=== PATIENT | male | born 1970 | race Caucasian/White ===

== ENCOUNTER 2024-01-12 06:37 | Emergency (ER) | payer BC, SELFPAY ==
[2024-01-12 06:39] VITALS: BP 136/72
[2024-01-12] MEDS: TORADOL 15 MG IV (07:01)
[2024-01-12 07:05] VITALS: BP 132/71
[2024-01-12] MEDS: NSS 500 IV (07:11)
--- NOTE | 2024-01-12 07:13 | ED.GENMED ---
History of Present Illness
General
Chief Complaint: Abdominal Pain
Source: patient
Exam Limitations: none
Time Seen by Provider: 01/12/24 06:44
Travel History
Have you had any contact with someone who has COVID-19?: No
Do you have any symptoms of coronavirus? Fever > 100 degrees, chills, cough, shortness of breath, sore throat, loss of taste or smell, muscle aches, or headache?: No
History of Present Illness
History of Present Illness:
Patient started yesterday with right lower quadrant pain. Then noted blood in the urine overnight. Pain is mild to moderate in nature. No fever or chills. No urinary symptoms. No history of similar pain.
Past History
Past History
ED Past Medical History: None
ED Past Surgical History: Orthopedic
Social History
Tobacco: Former smoker (quit 12 yrs ago)
Alcohol: Occasional
Personal: Single
Living: with family
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
Review of Systems
Review of Systems
All Other Systems: Not applicable
Constitutional: Denies fever
: Denies dysuria or frequency
Phy Exam
Physical Exam
Physical Exam:
GENERAL: Alert and oriented in no apparent distress. Standing in the room initially
EYE: Orbits normal.
CARDIAC: Regular rate and rhythm without any obvious murmurs.
LUNGS: Clear breath sounds,normal
ABDOMEN: Soft, elevated BMI. Bowel sounds present. Moderate tenderness right lower quadrant. No rebound or guarding no mass or hernia. No CVA tenderness
NEUROLOGICAL: Alert and oriented , grossly non-focal
SKIN: Warm and dry, no rash or lesion, no discoloration, skin intact.
MUSCULOSKELETAL: No edema,no deformity.Good color
PSYCH: Normal and appropriate interaction.
Course
Orders/Labs/Results
Orders:
Orders
01/12/24 06:49
IV Insert/Care/Rem.- Treatment PRN
0.9% Sodium Chloride 500 ml [Nss] 500 ml IV BOLUS
Ketorolac [Toradol] 15 mg IV NOW STA
01/12/24 07:03
Complete Blood Count/With Diff Urgent
Comprehensive Metabolic Panel Urgent
01/12/24 07:06
Urinalysis Reflex To Culture Urgent
Date Specimen was Collected: 01/12/24
Time Specimen was Collected: 07:03
01/12/24 07:47
CT Abd/Pel (IV only)-DH only Urgent
Comment:
Reason For Exam: Right lower quadrant abdominal pain
01/12/24 09:32
Ciprofloxacin 400 mg/[id number] [Cipro 400 mg] 200 ml IV NOW
MetroNIDAZOLE 500 MG/100 ML [Flagyl 500 mg] 100 ml IV NOW
Abnormal Lab Results
01/12/24
07:03
WBC 11.6 H 10^3/uL
(4.8-10.8)
MPV 11.7 H fL
(7.4-10.4)
Absolute Neuts (auto) 9.2 H 10^3/uL
(1.4-6.5)
Absolute Monos (auto) 1.0 H 10^3/uL
(0.1-0.6)
Neutrophils % 78.9 H %
(42.2-75.2)
Lymphocytes % 11.3 L %
(20.5-51.1)
BUN 21 H mg/dl
(9-20)
Creatinine 0.6 L mg/dL
(0.7-1.3)
Glucose 100 H mg/dl
(70-99)
01/12/24 07:03
01/12/24 07:03
Vital Signs
Initial and Last Documented VS:
Initial Vital Signs
Temp Pulse Resp BP Pulse Ox
98.3 F 72 22 136/72 98
01/12/24 06:39 06/17/24 06:39 01/12/24 06:39 01/12/24 06:39 01/12/24 06:39
Last Documented Vital Signs
Temp Pulse Resp BP Pulse Ox
98.3 F 72 22 132/71 94
01/12/24 06:39 01/12/24 06:39 01/12/24 06:39 01/12/24 07:05 01/12/24 07:45
MDM/Problems Addressed
Differential Diagnosis Includes:
Suspect kidney stone based on reported hematuria and sudden right groin or flank pain. However appendicitis would also be consideration with tenderness in right lower quadrant. Workup in progress. If there is blood in the urine we will get a
plain CT. If there is no blood we will get a CT with IV contrast
*Radiology
Radiology exam reviewed: radiology read reviewed (Inflammation of the sigmoid colon. Possible diverticulitis)
*Pulse Oximetry
Patient hypoxic: no
*Critical Care Note
Total Time (30-74mins, 75-104mins- exclusive of procedures): Not Applicable
Update Note
Update Note:
Patient clinically stable and nontoxic. Stable for discharge to follow-up
ED Attending Note
-
Portions of this chart may have been created with voice recognition software.� Occasional wrong word or��sound alike� substitutions may have occurred due to the inherent limitations of voice recognition software.
Discharge Plan
Departure
Patient Disposition: Home (Routine Discharge)
Date of Disposition: 01/12/24
Time of Disposition: 10:13
Patient with high blood pressure during this ER visit?: Yes
Discharge Problem:
Lower abdominal pain, Probable diverticulitis
Instructions: Diverticulitis (DC), Abdominal Pain
Prescriptions:
New
ciprofloxacin HCl 500 mg tablet
500 mg PO BID Qty: 14 0RF
metronidazole 500 mg tablet
500 mg PO TID Qty: 21 0RF
No Action
amoxicillin-pot clavulanate 1 TABLET tablet
1 tab PO BID Qty: 14 0RF
Referrals:
Eddie Joaquin MD [Family Provider] - Follow up in 2-3 days
Activity Restrictions/Additional Instructions:
Light diet.
Return sooner with increased pain fever or any other concerning symptoms
close follow-up with your primary physician
Interventions
Interventions:
*Risk Screen - Suicide Last Done: 01/12/24 06:39
*General Assessment Last Done: 01/12/24 07:11
*Neglect/Abuse Screening Last Done: 01/12/24 06:39
*ED COVID-19 Vaccine History Last Done: 01/12/24 07:11
YI-Jpktaq-Oozgarazzz Assessment Last Done: 01/12/24 07:09
Discharge Date and Time
Print Language: WALLISIAN
[2024-01-12 07:16] LABS: Urine Albumin Negative (Neg - Trace); Urine Bilirubin Negative (Negative); Urine Character Clear (Clear); Urine Color Yellow; Urine Glucose Negative (Negative); Urine Ketone Negative (Negative); Urine Leukocyte Negative (Negative); Urine Nitrite Negative (Negative); Urine Occult Blood Negative (Negative); Urine Specific Gravity 1.015 (<1.030); Urine Urobilinogen Negative (Neg - 1+)
[2024-01-12 07:20] LABS: % Basophils 0.4 % (0-2); % Eosinophils 0.9 % (0-6); % Immature Granulocytes 0.3 % (0-0.5); % Lymphocytes 11.3 % (20.5-51.1); % Monocytes 8.2 % (1.7-9.3); % Neutrophils 78.9 % (42.2-75.2); Absolute Basophils 0.1 10^3/uL (0-0.2); Absolute Eosinophils 0.1 10^3/uL (0-0.7); Absolute Lymphocytes 1.3 10^3/uL (1.2-3.4); Absolute Neutrophils 9.2 10^3/uL (1.4-6.5); Hematocrit 40.5 % (39.0-52.0); Mean Corp Hgb Conc. 34.6 g/dL (33.0-37.0); Mean Corpuscular Hgb 28.5 pg (27.0-31.0); Mean Corpuscular Volume 82.3 fL (80.0-94.0); Mean Platelet Volume 11.7 fL (7.4-10.4); Nucleated Red Blood Cells % 0 % (-); Platelet Count 153 10^3/uL (130-400); Red Blood Cell Count 4.92 10^6/uL (4.70-6.10); Red Cell Dist. Width 13.3 % (11.5-14.5); White Blood Cell Count 11.6 10^3/uL (4.8-10.8)
[2024-01-12 07:30] LABS: ALT (SGPT) 40 U/L (0-50); AST (SGOT) 26 U/L (17-59); Albumin 4.3 g/dl (3.5-5.0); Alkaline Phosphatase 76 U/L (38-126); Blood Urea Nitrogen 21 mg/dl (9-20); Calcium 9.4 mg/dl (8.4-10.2); Carbon Dioxide 30 mmol/L (22-30); Chloride 102 mmol/L (98-107); Glucose 100 mg/dl (70-99); Sodium 139 mmol/L (135-145); Total Bilirubin 0.8 mg/dl (0.2-1.3); Total Protein 7.2 g/dl (6.3-8.2); eGFR > 60.00
[2024-01-12] MEDS: FLAGYL 500 MG 100 IV (10:03)
[2024-01-12] MEDS: CIPRO 400 MG 200 IV (10:49)
[2024-01-12 11:00] VITALS: BP 140/84
== END 2024-01-12 12:05 | disposition home or self-care (01) ==
LOC: EMR 06:37
PROVIDERS: EMERGENCY PHYSICIAN Emergency Medicine; FAMILY PHYSICIAN Family Medicine
DX: R10.30 Lower abdominal pain, unspecified (principal); R03.0 Elevated blood-pressure reading, without diagnosis of hypertension; Z87.891 Personal history of nicotine dependence
CPT/HCPCS: 99285; 96365; 96375 ×2; 74177; 80053; 81003; 85025; 93005; Q9967

== ENCOUNTER → 2024-01-16 11:37 | Outpatient (REF) | payer BC, SELFPAY | LOC: RAD 11:37 | PROVIDERS: ATTENDING PHYSICIAN Family Medicine | DX: Z87.891 Personal history of nicotine dependence (principal) | CPT/HCPCS: 71271 ==